=== PATIENT | male | born 1995 | race Caucasian/White ===

== ENCOUNTER 2018-03-04 17:27 | Inpatient (IN) | payer OTHER ==
[~2018-03-04] VITALS: Ht 180.3 cm; Wt 75.7 kg
[2018-03-04] MEDS ORDERED: IPRATROPIUM BROMIDE 0.5 MG/2.5 ML NEBU NEB ONE (17:35)
[2018-03-04] MEDS ORDERED: methylPREDNISolone SOD SUCC 125 MG/2 ML VIAL IV ONE (17:35)
[2018-03-04] MEDS ORDERED: ALBUTEROL SULFATE 2.5 MG/3 ML NEBU NEB ONE (17:35)
[2018-03-04] MEDS ORDERED: BUPR1FIL3 SL (17:41)
[2018-03-04] MEDS ORDERED: ALBUTEROL SULFATE 2.5 MG/ 0.5 ML NEBU ONE (17:43)
[2018-03-04] MEDS ORDERED: IPRATROPIUM BROMIDE 0.5 MG/2.5 ML NEBU ONE (17:43)
[2018-03-04] MEDS ORDERED: ONDANSETRON IV *ER 4 MG/2 ML VIAL IV ONE (17:43)
[2018-03-04] MEDS ORDERED: PANTOPRAZOLE SODIUM IV 40 MG in IV DEXTROSE 5% 100 ML IV ONE (17:43)
[2018-03-04] MEDS ORDERED: methylPREDNISolone SOD SUCC 125 MG/2 ML VIAL ONE (17:45)
[2018-03-04] MEDS ORDERED: IV NS 1000 ML 1,000 ML IV ONE (17:45)
[2018-03-04] MEDS ORDERED: PANTOPRAZOLE SODIUM 40 MG VIAL ONE ×2 (17:52→19:33)
[2018-03-04] MEDS ORDERED: ONDANSETRON 4 MG/2 ML VIAL ONE (17:52)
[2018-03-04] MEDS ORDERED: CLINDAMYCIN PHOSPHATE IV 600 MG in IV DEXTROSE 5% 100 ML IV ONE (18:00)
[2018-03-04] MEDS ORDERED: CLINDAMYCIN PHOSPHATE 600 MG/4 ML VIAL ONE (18:02)
[2018-03-04 18:14] LABS: BASOPHILS % (AUTO) 0.7 % (0.0-2.0); EOSINOPHILS # (AUTO) 0.1 K/uL (0.0-0.7); EOSINOPHILS % (AUTO) 2.1 % (0.0-7.0); HEMATOCRIT 36.2 % (36.7-47.1); HEMOGLOBIN 12.5 g/dL (12.5-16.3); LYMPHOCYTES # (AUTO) 3.1 K/uL (20.0-40.0); LYMPHOCYTES % (AUTO) 44.8 % (20.5-51.5); MEAN CORPUSCULAR HEMOGLOBIN 30.8 uug (23.8-33.4); MEAN CORPUSCULAR HGB CONC 35 g/dL (32.5-36.3); MEAN CORPUSCULAR VOLUME 88.8 fL (73.0-96.2); MONOCYTES # (AUTO) 0.8 K/uL (2.0-10.0); MONOCYTES % (AUTO) 11.4 % (0.0-11.0); NEUTROPHILS # (AUTO) 2.9 K/uL (1.8-8.9); PLATELET COUNT (AUTO) 236 K/uL (152-348); RED BLOOD CELL COUNT(AUTO) 4.07 MIL/uL (4.06-5.63)
[2018-03-04 18:19] LABS: CARBON DIOXIDE 26 mmol/L (21-32); CHLORIDE 105 mmol/L (98-107); CREATININE 0.9 mg/dL (0.6-1.3); GLUCOSE 112 mg/dL (74-106); POTASSIUM 3.1 mmol/L (3.5-5.1); UREA NITROGEN, BLOOD 17 mg/dL (7-18)
[2018-03-04 18:21] LABS: ABG BASE EXCESS 1.7 mmol/L; ABG HCO3 27.6 mmol/L; ABG PCO2 48.5 mmHg (35.0-45.0); ABG PH 7.373 (7.350-7.450); ABG SITE RIGHT RADIAL; ABG TOTAL HEMOGLOBIN 13.2 G/dL (13.5-18.0); COHb 1.8 % (0.5-1.5); MetHb 0.8 % (0.0-1.5)
[2018-03-04 18:26] LABS: ACETAMINOPHEN < 2.0 ug/mL (10-30); ALANINE AMINOTRANSFERASE 22 U/L (16-63); ALKALINE PHOSPHATASE 54 U/L (50-136); ASPARTATE AMINOTRANSFERASE 20 U/L (15-37); BILIRUBIN,TOTAL 0.4 mg/dL (0.2-1.0); CREATINE KINASE, TOTAL 231 U/L (39-308); TOTAL PROTEIN, SERUM 6.8 g/dL (6.4-8.2)
[2018-03-04] MEDS ORDERED: IV NS 1000 ML 1,000 ML IV PRN (18:45)
--- NOTE | 2018-03-04 19:06 | NUR ---
SBAR to nurse Terrazas- patient is now on 4 point restraints, still for thurston catheter insertion, urine specimen collection, IVF maintainance & for possible admission
[2018-03-04 19:10] LABS: ETHANOL < 3 MG/DL (0-0)
[2018-03-04] MEDS ORDERED: HALOPERIDOL LACTATE 5 MG/1 ML VIAL IV ONE (19:30)
[2018-03-04 19:33] LABS: *BILIRUBIN,URIN NEGATIVE (NEGATIVE); *BLOOD, URINE Trace-intact (NEGATIVE); *CLARITY,URINE CLEAR (CLEAR); *COLOR,URINE YELLOW (YELLOW); *KETONES,URINE NEGATIVE (NEGATIVE); *PROTEIN,URINE NEGATIVE (NEGATIVE); *UROBILINOGEN,URINE 0.2 E.U./dl (NORMAL); LEUKOCYTE ESTERASE ,URINE NEGATIVE (NEGATIVE); NITRITE, URINE NEGATIVE (NEGATIVE); UGLUCOSE NEGATIVE (NEGATIVE)
[2018-03-04] MEDS ORDERED: HALOPERIDOL LACTATE 5 MG/1 ML VIAL ONE (19:33)
[2018-03-04 19:46] LABS: *AMPHETAMINE, URINE POSITIVE (NEGATIVE); *BARBITURATE, URINE NEGATIVE (NEGATIVE); *CANNABINOID, URINE POSITIVE (NEGATIVE); *COCCAINE, URINE NEGATIVE (NEGATIVE); *OPIATE, URINE POSITIVE (NEGATIVE); *PHENCYCLIDINE SCREEN,URINE NEGATIVE (NEGATIVE)
[2018-03-04 19:48] LABS: MUCUS,URINE MANY /LPF (0-FEW); RBC,URINE 0-3 /HPF (0-3)
--- NOTE | 2018-03-04 20:40 | NUR ---
REPORT GIVEN TO CCU NURSE EDDY OLMEDO
[2018-03-04 21:15] VITALS: BP 136/71
--- NOTE | 2018-03-04 21:15 | NUR ---
Admitted a 23 y.o. male patient from ER accompanied by RN and OXIDATION OPERATOR with DX: multiple drug OD. To CCU2. Patient obtunded, aphasic and doesn't open eyes to name or follow any commands. SEGURA randomly and purposefully. With leather restraints to both arms upon transport; changed to bilateral soft wrist restraints. IV accidentally out when patient was transferred from [facility] to bed. Assessment completed. Addendum: 03/04/18 at 5563 by SHARA JAFFE RN Amended: Links added.
--- NOTE | 2018-03-04 21:20 | NUR ---
Pt. admitted to CCU, under care of Dr. HILL Belongs List completed
[2018-03-04 21:30] VITALS: BP 148/84
[2018-03-04] MEDS ORDERED: MORPHINE SULFATE 4 MG/1 ML DISP.SYRIN IV PRN (21:30)
[2018-03-04] MEDS ORDERED: ACETAMINOPHEN 325 MG TABLET PO PRN (21:30)
[2018-03-04] MEDS ORDERED: LORAZEPAM 2 MG/1 ML VIAL IV PRN (21:30)
[2018-03-04] MEDS ORDERED: HALOPERIDOL LACTATE 5 MG/1 ML VIAL IM PRN (21:30)
[2018-03-04] MEDS ORDERED: ACETAMINOPHEN 650 MG SUPP.RECT RC PRN (21:30)
--- NOTE | 2018-03-04 21:30 | NUR ---
Not able to obtain admission data. Patient obtunded and no family available. New IV started to RFA. Patient opened eyes briefly and withdrew arm during IV insertion, but non verbal. Addendum: 03/04/18 at 4727 by SHARA JAFFE RN Amended: Links added.
[2018-03-04 21:45] VITALS: BP 119/74
[2018-03-04 22:00] VITALS: BP 114/74
[2018-03-04] MEDS: POTASSIUM CHLORIDE 20 MEQ in IV 1/2NS 1000 ML 1,000 ML IV PRN (22:55)
[2018-03-04 23:00] VITALS: BP 126/70
--- NOTE | 2018-03-04 23:00 | NUR ---
VS stable. O2 changed to 6 L simple mask; patient is a mouth breather.
[2018-03-05] VITALS (24 sets, daily range): BP systolic 115–141; BP diastolic 60–79
--- NOTE | 2018-03-05 | NUR ---
Hypothermic; warming blanket turned on. VS stable.
--- NOTE | 2018-03-05 03:00 | NUR ---
Temp=98.1. Diaphoretic. Skin care provided. Patient moans during care; still no appropriate verbal responses. Addendum: 03/05/18 at 0331 by SHARA JAFFE RN Amended: Links added.
--- NOTE | 2018-03-05 04:30 | NUR ---
Am labs drawn by tree tapping laborer. Patient opened eyes to name, but goes back to sleep right away. Respirations regular, non labored.
[2018-03-05 04:57] LABS: BASOPHILS % (AUTO) 0.3 % (0.0-2.0); HEMATOCRIT 40.2 % (36.7-47.1); HEMOGLOBIN 13.7 g/dL (12.5-16.3); LYMPHOCYTES % (AUTO) 25.7 % (20.5-51.5); MEAN CORPUSCULAR HEMOGLOBIN 30.6 uug (23.8-33.4); MEAN CORPUSCULAR HGB CONC 34 g/dL (32.5-36.3); MEAN CORPUSCULAR VOLUME 89.6 fL (73.0-96.2); MONOCYTES # (AUTO) 0.1 K/uL (2.0-10.0); MONOCYTES % (AUTO) 1.9 % (0.0-11.0); NEUTROPHILS # (AUTO) 2.7 K/uL (1.8-8.9); NEUTROPHILS % (AUTO) 72.1 % (38.5-71.5); PLATELET COUNT (AUTO) 277 K/uL (152-348); RED BLOOD CELL COUNT(AUTO) 4.48 MIL/uL (4.06-5.63); WHITE BLOOD COUNT (AUTO) 3.8 K/uL (3.6-10.2)
[2018-03-05 05:09] LABS: ALANINE AMINOTRANSFERASE 23 U/L (16-63); ALKALINE PHOSPHATASE 60 U/L (50-136); ASPARTATE AMINOTRANSFERASE 19 U/L (15-37); BILIRUBIN,TOTAL 0.4 mg/dL (0.2-1.0); CARBON DIOXIDE 25 mmol/L (21-32); CHLORIDE 103 mmol/L (98-107); CREATININE 0.7 mg/dL (0.6-1.3); GLUCOSE 140 mg/dL (74-106); PHOSPHOROUS 3.8 mg/dL (2.5-4.9); POTASSIUM 4.5 mmol/L (3.5-5.1); TOTAL PROTEIN, SERUM 7.8 g/dL (6.4-8.2); UREA NITROGEN, BLOOD 12 mg/dL (7-18)
--- NOTE | 2018-03-05 06:45 | NUR ---
Continues to sleep, but able to open eyes to name. Reoriented to place. VS stable. O2 changed to 2 L NC; sat remains 99-100%.
--- NOTE | 2018-03-05 07:30 | NUR ---
RECIEVED PT LYING IN BED, VERY SOUND ASLEEP. NO APPARENT DISTRESS NOTED. HR SR, O2 2LNC. O2SAT 100%.
--- NOTE | 2018-03-05 10:00 | NUR ---
PT'S MOTHER CALLED IN AND ASKED ABOUT HER SON'S CONDITION. UPDATED ON THE PHONE. STATED THAT SHE WILL COME TO VISIT HIM THIS AFTERNOON.
--- NOTE | 2018-03-05 11:00 | NUR ---
PT HAS LOW URINE OUTPUT. BLADDER SCAN DONE AND THERES ONLY 175ML NOTED. NOTIFIED DR BURNS, NO ORDERS MADE. PT IS SLEEPING SO SOUNDLY. IVF INFUSING WELL AT 80ML/HR. ON THE RIGHT FA.
--- NOTE | 2018-03-05 11:00 | NUR ---
PT REMAINS CALM AND COOPERATIVE. RESTRAINTS IS DISCONTINUED.
[2018-03-05] MEDS: POTASSIUM CHLORIDE 20 MEQ in IV 1/2NS 1000 ML 1,000 ML IV PRN (11:15)
--- NOTE | 2018-03-05 13:00 | NUR ---
PT AWAKENED AND FEELING HUNGRY. ATE LUNCH AND TOLERATED 100% OF HIS TRAY. SPEECH IS CLEAR. ORIENTED TO HIS NAME AND PLACE. VERY COOPERATIVE AND CALM. PT DOES NOT REMEMBER ANYTHING WHAT HAPPENED TO HIM.
--- NOTE | 2018-03-05 17:00 | NUR ---
PT IS SLEEPING WELL. MOTHER IS VISITING AND PT AWAKENED. HE IS VERY CALM AND COOPERATIVE.
--- NOTE | 2018-03-05 17:45 | NUR ---
ATE DINNER WELL. PLACED ON ROOM AIR, O2SAT MAINTAINTAINED 98-100%.
--- NOTE | 2018-03-05 18:10 | NUR ---
PM CARE RENDERED. PT FOLLOWS COMMANDS. GOOD URINE OUTPUT. FALLEN BACK TO SLEEP.
--- NOTE | 2018-03-05 19:30 | NUR ---
Report received. Patient sleeping, easily arouses to name. Answers questions and follows commands appropriately but still very sleepy. NAD noted. Addendum: 03/05/18 at 2030 by SHARA JAFFE RN Amended: Links added.
--- NOTE | 2018-03-05 21:15 | NUR ---
Patient's GF visited; patient woke up, still doesn't remember events. Addendum: 03/05/18 at 2118 by SHARA JAFFE RN Amended: Links added.
--- NOTE | 2018-03-05 22:30 | NUR ---
Seen by Dr. Garcia. Order received to transfer patient to [facility]. VS stable. Addendum: 03/05/18 at 2328 by SHARA JAFFE RN Amended: Links added.
--- NOTE | 2018-03-05 23:00 | NUR ---
Malin catheter and IV dc'd. Patient cooperative but passive and non communicative.
[2018-03-06] VITALS: BP 116/66
--- NOTE | 2018-03-06 01:00 | NUR ---
Transferred to 205 ambulatory. Gait steady. Appears passive and withdrawn. NAD noted.
[2018-03-06 05:38] VITALS: BP 125/73
[2018-03-06] MEDS ORDERED: NORMAL SALINE FLUSH 10 ML DISP.SYRIN IV SCH (06:00)
--- NOTE | 2018-03-06 06:00 | NUR ---
Up to the BR x 2 to void. VS stable.
--- NOTE | 2018-03-06 06:23 | NUR ---
Slept well during the night. NAD noted.
--- NOTE | 2018-03-06 07:58 | NUR ---
RECEIVED THE PATIENT IN BED ASLEEP BUT EASILY AROUSABLE ON ROUNDS DENIES PAIN OR DISCOMFORTS AT THIS TIME.FLAT EFFECT RESTING WITH NO C/O NOTED AT THIS TIME
[2018-03-06 11:24] VITALS: BP 127/65
--- NOTE | 2018-03-06 12:26 | NUR ---
RESTING DENIES SUICIDAL ISEATIONS STATED THAT HE NEVER THOUGHT OF OR ATTEMPTED SUICIDE EVER IN HIS LIFE.
--- NOTE | 2018-03-06 12:38 | NUR ---
NEW ORDERS NOTED TO DISCHARGE PATIENT TODAY SPOKE WITH PATIENT STATED THAT IT WAS OKAY WILL GO TO HIS PARENTS HOUSE FIRST THEN WILL GO TO HIS FRIENDS HOUSE.DR LUCERO HERE TO SEE PATIENT AND STATED THAT PATIENT CAN BE DISCHARGED FROM THE PSYCH STAND POINT.
--- NOTE | 2018-03-06 13:29 | NUR ---
PATIENT DISCHARGED WITH DISCHARGE INSTRUCTIONS TO CALL HIS PRIMARY DOCTOR FOR A FOLLOW UP APPOINTMENT AND TO CONTINUE WITH HIS DRUG REHAB PROGRAM AND HE EXPRESSED UNDERSTANDING PATIENT WAS ESCORTED TO OUTSIDE THE FACILITY STATED WILL CATCH THE BUS TO GO TO HIS PARENTS HOUSE.
== END 2018-03-06 13:28 | disposition home or self-care (01) | DRG 816 ==
LOC: ER 17:28 → EDBD 17:28 → CCU 20:48 → MED 03-06 00:30
PROVIDERS: ADMIT Internal Medicine; ATTEND Internal Medicine
DX: T40.1X1A Poisoning by heroin, accidental (unintentional), initial encounter (principal); G92 Toxic encephalopathy; T42.4X1A Poisoning by benzodiazepines, accidental (unintentional), initial encounter; T43.621A Poisoning by amphetamines, accidental (unintentional), initial encounter; T40.7X1A Poisoning by cannabis (derivatives), accidental (unintentional), initial encounter; Y92.414 Local residential or business street as the place of occurrence of the external cause; E87.6 Hypokalemia; F11.20 Opioid dependence, uncomplicated; F13.10 Sedative, hypnotic or anxiolytic abuse, uncomplicated; F15.10 Other stimulant abuse, uncomplicated; F12.10 Cannabis abuse, uncomplicated
CPT/HCPCS: 36415; 36600; 70030-TC; 71045; 80307; 83735; 84100; 85025; 85610; 87040; 93005; A4663; C9113; G0480; G0480-TC; J1630; J2405; J2930; J3480; J3490; J3590; J7030